=== PATIENT | male | born 1970 | race Caucasian/White ===

== ENCOUNTER → 2016-07-13 | Outpatient (CLI) | payer BC, OTHER ==
--- NOTE | 2016-07-13 12:17 | DIAGNOSTIC IMAGING REPORT ---
RIGHT FIFTH FINGER 3 VIEWS CLINICAL HISTORY: Fifth finger pain. FINDINGS: 3 views of the right fifth finger are obtained. No prior studies are available for comparison at the time of dictation. The skeletal structures are well mineralized. No fracture is seen. Minimal arthritic change is present at the distal interphalangeal joint. The fifth metacarpophalangeal and proximal to phalangeal joints are well-maintained. No erosions are identified. The overlying soft tissues are within normal limits. No radiodense foreign body is seen. IMPRESSION: No acute bony abnormality is seen in the right fifth finger. Electronically signed by: Chiki Morillo M.D. 07/13/2016 12:16 PM Dictated Date/Time: 07/13/2016 12:14 PM
== END | disposition home or self-care (01) ==
LOC: C.RADBC 11:29
PROVIDERS: ATTEND Nurse Practitioner Family
DX: M79.644 Pain in right finger(s) (principal)